=== PATIENT | male | born 1945 | race Caucasian/White ===

== ENCOUNTER → 2020-12-21 | Outpatient (CLI) | payer MEDICARE ==
[~2020-12-21] MED LIST: CARDURA 2MG TAB2 MG PO; DECADRON6 MG PO; DIABETA 5 MG TAB5 MG PO; LOPRESSOR 25 MG25 MG PO; MINOCYCLINE HC100 MG PO; NORVASC5 MG PO; NOVOLOG MI100 UNIT/1 SQ; SYNTHROID75 MCG PO; VENTOLIN HFA 66.7 GM INH; VISTARIL 50 MG50 MG PO
== END ==
LOC: HEART 5 14:27
DX: I38 Endocarditis, valve unspecified (principal); I07.1 Rheumatic tricuspid insufficiency
CPT/HCPCS: 93306

== ENCOUNTER → 2022-01-12 | Outpatient (CLI) | payer MEDICARE | LOC: HEART 5 15:26 | DX: I08.3 Combined rheumatic disorders of mitral, aortic and tricuspid valves (principal); I27.20 Pulmonary hypertension, unspecified | CPT/HCPCS: 93306 ==